=== PATIENT | male | born 1975 | race Caucasian/White ===

== ENCOUNTER 2020-03-13 14:16 | Outpatient (REF) | payer OTHER, SELFPAY | END 2020-03-13 14:17 | disposition home or self-care (01) | LOC: HO.HMGCLDS 14:16 | PROVIDERS: PCP Internal Medicine; Visit Provider Internal Medicine | DX: Z20.828 Contact with and (suspected) exposure to other viral communicable diseases (principal) | CPT/HCPCS: 36415; U0003 ==

== ENCOUNTER 2022-10-08 10:45 | Outpatient (AMB) | payer OTHER, SELFPAY ==
--- NOTE | 2022-10-08 10:47 | MHC.OFFWIV ---
Intake Vital Signs 10/08/22 10:54 BP 130/80 Blood Pressure Location Lt brachial Position Sitting Pulse 72 Pulse Source Pulse Oximeter Temp 97.4 F Temp Source Temporal Artery Scan Pulse Oximetry (%) 95 Oxygen Delivery Method Room Air Intake Visit Reasons: EP RT Eye concern Intake Note: Patient here for right eye concern that started last night, pt states it is red and woke up with discharge and tender to the touch. Patient Tobacco Use Status: Never used Tobacco Allergies No Known Allergies Allergy (Verified 10/08/22 10:53) Do you need a note to return to daycare/school/sports/work: No HPI HPI Comments History of Present Illness Details [id number]-year-old male presents with right head discomfort since last night, reports this morning he woke up with a crusty, shot right eye, and is having slight discomfort to the lower eyelid, patient reports that his is sick at home with upper respiratory symptoms. Patient denies painful eye movements he tells me just feels a slight discomfort to the right eye and he feels like there may be something in there. Denies fevers, chills, headache, vision changes, dizziness and weakness. No chest pain or shortness of breath. No URI symptoms . No visual changes physical exam with mild injection to right conjunctiva with a developing stye to the right lower eyelid, no pain with extraocular movements. No erythema or warmth around the orbit. this is likely conjunctivitis with developing hordeolum/ stye. Unlikely acute closed angle glaucoma, wet macular degeneration. No signs of foreign body. No signs of orbital or periorbital cellulitis educated on warm compresses will discharge with erythromycin ointment, t.i.d. x7 days. Educated patient on diagnosis and treatment plan, answered all question, patient verbalizes understanding. At this time patient will be discharged home, advised to return with new or worsening symptoms. Educated on worrisome signs and symptoms and when to return. At this time I feel comfortable discharge home. [facility] Social History Patient Tobacco Use Status: Never used Tobacco Review of Systems Const Details: Constitutional : No Weight loss, No Fever, No Chills, No Fatigue, No Malaise ENT/Mouth : No sore throat, No Rhinorrhea Eyes: No Eye Pain, No Swelling, + Redness Cardiovascular : No Chest Pain, No SOB, No Dyspnea on Exertion, No Orthopnea, No Edema, No Palpitations Respiratory : No Cough, No Sputum, No Wheezing Gastrointestinal : No Nausea, No Vomiting, No Diarrhea, No Constipation, No abdominal Pain, No Hematochezia, No Melena Genitourinary : No Dysuria, No Urinary Frequency, No Hematuria, Musculoskeletal : No joint pain, No Myalgias, No Joint Swelling Skin : No Skin Lesions, No rash Neuro : No Weakness, No Numbness, No Dizziness, No Headache Psych : No Anxiety/Panic, No Depression All other systems reviewed and are negative All systems reviewed & are unremarkable except as noted in HPI and below Physical Exam Vital Signs: Last Vital Signs Temp 97.4 F 10/08/22 10:54 Pulse 72 10/08/22 10:54 BP 130/80 10/08/22 10:54 Pulse Ox 95 10/08/22 10:54 Oxygen Delivery Method Room Air 10/08/22 10:54 vss Appearance: Alert.? Oriented X3.? No acute distress.? Head: Normocephalic, atraumatic, no step-offs or deformities Eyes: Pupils equal, round and reactive to light.? ENT: Pharynx normal.? mild injection to right conjunctiva with a developing stye to the right lower eyelid, no pain with extraocular movements. No erythema or warmth around the orbit. Neck: Normal inspection.? Neck supple.? CVS: Normal heart rate and rhythm.? Pulses normal.? Respiratory: No respiratory distress.? Breath sounds normal.? Skin: Skin warm and dry.? Normal skin color.? Normal skin turgor.? Extremities: No lower extremity edema.? No calf ttp. 5/5 strength to bilateral upper and lower extremities Neuro: Oriented X 3.? No motor deficit.? No sensory deficit. CN 2-12 intact Assessment & Plan Assessment & Plan (1) Conjunctivitis: Code(s): H10.9 - Unspecified conjunctivitis (2) Stye: Code(s): H00.019 - Hordeolum externum unspecified eye, unspecified eyelid Plan Take your medications as prescribed. If you were prescribed antibiotics today, it is important that you take your medication to their entirety, do not skip any doses, do not finish them early. Follow-up with your primary care provider this week. Return to the emergency department with new or worsening symptoms. Such as fevers, chills, chest pain, shortness of breath, nausea, vomiting, dizziness, headache, vision changes, lethargy In case of emergency call 911 apply warm compresses 3 to 4 times a day Medications: New erythromycin 0.5 inches ophthalmic (eye) TID 3.5 grams 0RF 7 days Coding Level of Care Code Est Pt Level 3 (47153) Diagnoses Conjunctivitis H10.9 Stye H00.019
[2022-10-08 10:54] VITALS: BP 130/80; PULSE 72; TEMP 36.3; O2SAT 95
== END 2022-10-08 12:01 | disposition home or self-care (01) ==
PROVIDERS: PCP Internal Medicine; Visit Provider Physician Assistant
DX: H10.9 Unspecified conjunctivitis (principal); H00.019 Hordeolum externum unspecified eye, unspecified eyelid
CPT/HCPCS: 99213